=== PATIENT | female | born 1940 | race Caucasian/White ===

== ENCOUNTER 2024-05-01 11:18 | Day surgery (SDC) | payer MEDICARE, OTHER ==
[2024-04-27 11:36] LABS: ALBUMIN 3.9 G/DL (3.4-5.0); ALBUMIN/GLOBULIN RATIO 1.1 (1.1-1.5); ALKALINE PHOSPHATASE 55 IU/L (46-116); BLOOD UREA NITROGEN 16 MG/DL (7-18); BUN/CREATININE RATIO 20.3 (10.0-20.0); CALCIUM 9.6 MG/DL (8.5-10.1); CHLORIDE 102 MMOL/L (99-107); CREATININE 0.79 MG/DL (0.40-0.90); PRE OP ALT 26 U/L (30-65); PRE OP ANION GAP 7 (8-16); PRE OP AST 19 U/L (10-37); PRE OP BILIRUB, TOTAL 1.5 MG/DL (0.0-1.0); PRE OP GLUCOSE 98 MG/DL (70-104); PRE OP POTASSIUM 3.8 MMOL/L (3.4-5.1); PRE OP SODIUM 139 MMOL/L (135-145); TOTAL CARBON DIOXIDE 30.2 MMOL/L (24-32); TOTAL PROTEIN 7.6 G/DL (6.4-8.2); eGFR 69 ML/MIN
[2024-04-27 13:10] LABS: HEMATOCRIT 39.5 % (37.7-47.9); HEMOGLOBIN 13.5 G/DL (11.5-16.0); MEAN CORPUSCULAR HEMOGLOBIN 33.3 PG (27-31.2); MEAN CORPUSCULAR HGB CONC 34.1 % (32-36); MEAN CORPUSCULAR VOLUME 97.8 FL (81-97); RED BLOOD COUNT 4.04 X10'6 (3.60-4.90); WHITE BLOOD COUNT 7.7 X10'3 (4.5-11.0)
[2024-04-27 13:11] LABS: BASOPHILS % 0 % (0-2); EOSINOPHILS # (AUTO) 0.1 X10'3 (0-0.9); EOSINOPHILS % (AUTO) 1 % (0-6); LYMPHOCYTES # (AUTO) 1.2 X10'3 (1.1-4.8); LYMPHOCYTES % 16 % (24-44); MONOCYTES # (AUTO) 0.5 X10'3 (0-0.9); MONOCYTES % 7 % (0-12); NEUTROPHILS # (AUTO) 5.9 X10'3 (1.8-7.7); PLATELET COUNT 292 X10'3 (130-400); RED CELL DISTRIBUTION WIDTH 12.9 % (11-16); SEGMENTED NEUTROPHILS % 76 % (36-66)
[~2024-05-01] VITALS: Ht 170.2 cm; Wt 56.7 kg
[2024-05-01] MEDS: cefazolin 2gm/D5W 100mL 100 ML IV ONE (05:30)
[~2024-05-01 11:18] MED LIST: LOSA1TAB36 PO; VIT B COMPLEX; VIT C; VIT D
[2024-05-01 12:00] VITALS: BP 151/74; PULSE 59; RESP 14; TEMP 97.8; O2SAT 98
[2024-05-01] MEDS: famotidine 20mg tablet PO ONE (12:10)
[2024-05-01] MEDS: ringers solution, lacted 1,000 ML IV SCH ×2 (12:11→14:34)
[2024-05-01] MEDS ORDERED: meperidine/PF 50mg/ml syringe ONE (12:12)
[2024-05-01] MEDS ORDERED: ondansetron/PF 4mg/2ml inj ONE (12:14)
[2024-05-01] MEDS ORDERED: proCHLORperazine 10 MG/2 ml inj IV PRN (12:50)
[2024-05-01] MEDS ORDERED: fentaNYL/PF 50MCG/1 ML 2ML syringe IV PRN (12:50)
[2024-05-01] MEDS ORDERED: hydrALAZINE 20mg/ml inj. IV PRN (12:50)
[2024-05-01] MEDS ORDERED: acetaminophen 1,000mg/100ml IV 100 ML IV ONE ×2 (12:50→13:31)
[2024-05-01] MEDS ORDERED: ondansetron/PF 4mg/2ml inj IV PRN (12:50)
[2024-05-01] MEDS ORDERED: proMETHazine 25mg rectal suppository RC PRN (12:50)
[2024-05-01] MEDS ORDERED: labetalol 20mg/4ml (5mg/ml) syringe IV PRN (12:50)
[2024-05-01] MEDS ORDERED: HYDROmorphone/PF 0.2 MG/ML SYRINGE IV PRN ×2 (12:50)
[2024-05-01] MEDS ORDERED: desflurane 240ml liquid inh. IH ONE (12:59)
[2024-05-01] MEDS ORDERED: morphine 4 MG/ML inj SYRINge ONE (13:02)
[2024-05-01] MEDS: LIDOcaine 1% (10mg/ml)w/preservative inj. 20ml MDV ONE (13:16)
[2024-05-01] MEDS: BUPIVAcaine 2.5mg/ml inj 50ml vial (contains preservative) ONE (13:16)
[2024-05-01] MEDS ORDERED: ketorolac trometh 30MG/ML vial 30 MG/ML VIAL ONE (13:30)
[2024-05-01 14:01] VITALS: BP 134/71; PULSE 76; RESP 12; O2SAT 99
[2024-05-01 14:10] VITALS: BP 155/90; PULSE 66; RESP 18; O2SAT 97
[2024-05-01 14:20] VITALS: BP 143/89; PULSE 72; RESP 12; O2SAT 97
[2024-05-01 14:30] VITALS: BP 145/86; PULSE 73; RESP 17; O2SAT 95
[2024-05-01 14:40] VITALS: BP 161/88; PULSE 74; RESP 20; O2SAT 94
== END 2024-05-01 15:01 | disposition home or self-care (01) ==
LOC: PAS 11:18
PROVIDERS: ATTEND Surgery
DX: C50.211 Malignant neoplasm of upper-inner quadrant of right female breast (principal); I10 Essential (primary) hypertension; Z86.73 Personal history of transient ischemic attack (TIA), and cerebral infarction without residual deficits; Z87.891 Personal history of nicotine dependence; Z87.442 Personal history of urinary calculi; Z79.891 Long term (current) use of opiate analgesic; Z79.899 Other long term (current) drug therapy; Z98.890 Other specified postprocedural states; Z88.1 Allergy status to other antibiotic agents; Z88.8 Allergy status to other drugs, medicaments and biological substances
CPT/HCPCS: 19301; 36415; 80053; 82948; 85025; A4215; A4618; A6402; A7000; J0131; J0690; J1100; J1885; J2270; J2405; J2704; J3490; J7030; J7120; Z7506; Z7508; Z7512; Z7610; A6449; J2175

== ENCOUNTER 2024-05-29 07:02 | Day surgery (SDC) | payer MEDICARE, OTHER ==
[2024-05-26 15:16] LABS: BASOPHILS % (AUTO) 0.5 % (0-1); EOSINOPHILS # (AUTO) 0.1 X10'3 (0-0.9); EOSINOPHILS % (AUTO) 0.9 % (0-6); LYMPHOCYTES # (AUTO) 1.5 X10'3 (1.1-4.8); LYMPHOCYTES % (AUTO) 22.4 % (21-51); MEAN CORPUSCULAR HEMOGLOBIN 33.5 PG (27.0-31.0); MEAN CORPUSCULAR HGB CONC 34.4 g/dL (33.0-36.5); MEAN CORPUSCULAR VOLUME 97.3 FL (78-98); MEAN PLATELET VOLUME 8.2 FL (7.4-10.4); MONOCYTES # (AUTO) 0.5 X10'3 (0-0.9); MONOCYTES % (AUTO) 7.9 % (2-12); NEUTROPHILS # (AUTO) 4.4 X10'3 (1.8-7.7); NEUTROPHILS % (AUTO) 68.3 % (42-75); PRE OP HEMATOCRIT 38.1 % (35.0-45.0); PRE OP HEMOGLOBIN 13.1 g/dL (12.0-16.0); PRE OP PLATELET COUNT 221 X10'3 (140-440); PRE OP WHITE BLOOD COUNT 6.5 10'3 (4.8-10.8); RED BLOOD COUNT 3.92 X10'6 (4.20-5.60); RED CELL DISTRIBUTION WIDTH 13.3 % (11.5-14.5)
[2024-05-26 15:39] LABS: ALBUMIN 3.9 G/DL (3.4-5.0); ALBUMIN/GLOBULIN RATIO 1.3 (1.1-1.5); ALKALINE PHOSPHATASE 47 IU/L (46-116); BLOOD UREA NITROGEN 16 MG/DL (7-18); BUN/CREATININE RATIO 22.5 (10.0-20.0); CALCIUM 9.7 MG/DL (8.5-10.1); CHLORIDE 105 MMOL/L (99-107); CREATININE 0.71 MG/DL (0.40-0.90); PRE OP ALT 26 U/L (30-65); PRE OP ANION GAP 5 (8-16); PRE OP AST 22 U/L (10-37); PRE OP BILIRUB, TOTAL 1.9 MG/DL (0.0-1.0); PRE OP GLUCOSE 96 MG/DL (70-104); PRE OP POTASSIUM 3.4 MMOL/L (3.4-5.1); PRE OP SODIUM 142 MMOL/L (135-145); TOTAL CARBON DIOXIDE 31.6 MMOL/L (24-32); TOTAL PROTEIN 6.9 G/DL (6.4-8.2); eGFR 78 ML/MIN
[2024-05-29] VITALS (11 sets, daily range): BP systolic 135–166; BP diastolic 72–100; PULSE 57–96; RESP 14–30; TEMP 96.9; O2SAT 95–99
[~2024-05-29] VITALS: Ht 170.2 cm; Wt 56.8 kg
[2024-05-29] MEDS: cefazolin 2gm/D5W 100mL 100 ML IV ONE (05:30)
[~2024-05-29 07:02] MED LIST changes: +ASCO500C17 PO; +CHOL10006 PO; -VIT B COMPLEX; -VIT C; -VIT D; +VITA1CAP PO; +ringers solution, lacted 1,000 ML IV SCH
[2024-05-29] MEDS ORDERED: HYDROmorphone/PF 0.2 MG/ML SYRINGE IV PRN (07:35)
[2024-05-29] MEDS ORDERED: fentaNYL/PF 50MCG/1 ML 2ML syringe IV PRN ×2 (07:35)
[2024-05-29] MEDS ORDERED: proCHLORperazine 10 MG/2 ml inj IV PRN (07:35)
[2024-05-29] MEDS ORDERED: hydrALAZINE 20mg/ml inj. IV PRN (07:35)
[2024-05-29] MEDS ORDERED: labetalol 20mg/4ml (5mg/ml) syringe IV PRN (07:35)
[2024-05-29] MEDS: famotidine 20mg tablet PO ONE (07:57)
[2024-05-29] MEDS: LIDOcaine 1% (10mg/ml)w/preservative inj. 20ml MDV ONE (08:40)
[2024-05-29] MEDS: BUPIVAcaine 2.5mg/ml inj 50ml vial (contains preservative) ONE (08:40)
[2024-05-29] MEDS ORDERED: sevoflurane 250ml liquid IH ONE (09:00)
[2024-05-29] MEDS ORDERED: fentaNYL/PF 50MCG/1 ML 2ML syringe ONE (09:08)
[2024-05-29] MEDS ORDERED: midazolam 1 mg/ML 2ml injection ONE (09:08)
[2024-05-29] MEDS ORDERED: propofol inj 20 ML IV ONE (09:22)
[2024-05-29] MEDS ORDERED: LIDOcaine 2% (20mg/ml) 5ml vial ONE (09:22)
[2024-05-29] MEDS ORDERED: ePHEDrine 50MG/ML INJ. ONE (09:23)
[2024-05-29] MEDS ORDERED: dexamethasone sod phosphate 4mg/ml inj. ONE (09:23)
[2024-05-29] MEDS ORDERED: glycopyrrolate 0.2mg/ml inj ONE (09:23)
[2024-05-29] MEDS ORDERED: 0.9 % SODIUM CHLORIDE 10 ML VIAL ONE (09:23)
[2024-05-29] MEDS: acetaminophen 1,000mg/100ml IV 100 ML IV ONE (10:39)
[2024-05-29] MEDS: ondansetron/PF 4mg/2ml inj IV PRN (10:43)
[2024-05-29] MEDS: ringers solution, lacted 1,000 ML IV SCH (10:44)
== END 2024-05-29 11:59 | disposition home or self-care (01) ==
LOC: PRE-OP 07:02 → PAS 11:59
PROVIDERS: ATTEND Surgery
DX: C50.211 Malignant neoplasm of upper-inner quadrant of right female breast (principal); Z79.899 Other long term (current) drug therapy; Z87.442 Personal history of urinary calculi; Z88.8 Allergy status to other drugs, medicaments and biological substances; Z87.891 Personal history of nicotine dependence
CPT/HCPCS: 19301; 36415; 80053; 82948; 85025; A4215; A4618; A6402; A7000; J0131; J0690; J1100; J2001; J2250; J2405; J2704; J3010; J3490; J7030; J7120; Z7506; Z7508; Z7512; Z7610; A6449

== ENCOUNTER 2024-12-10 13:14 | Emergency (ER) | payer MEDICARE, OTHER ==
[~2024-12-10] VITALS: Ht 170.2 cm; Wt 57.3 kg
[~2024-12-10 13:14] MED LIST changes: +APIX5TAB3 PO; -ASCO500C17 PO; -CHOL10006 PO; +DILT-36 PO; +LOP25T PO; -VITA1CAP PO; -ringers solution, lacted 1,000 ML IV SCH
[2024-12-10 15:40] LABS: ALBUMIN 3.9 G/DL (3.4-5.0); ANION GAP 6 (8-16); BLOOD UREA NITROGEN 16 MG/DL (7-18); BUN/CREATININE RATIO 25.4 (10.0-20.0); CALCIUM 9.1 MG/DL (8.5-10.1); CHLORIDE 104 MMOL/L (99-107); CREATININE 0.63 MG/DL (0.40-0.90); GLUCOSE 95 MG/DL (70-104); POTASSIUM 3.4 MMOL/L (3.5-5.1); PRO BRAIN NATRIURETIC PEPTIDE 388 PG/ML (0-450); SODIUM 141 MMOL/L (135-145); TOTAL CARBON DIOXIDE 31.3 MMOL/L (24-32); eCRCL 58 ML/MIN; eGFR 90 ML/MIN
[2024-12-10 15:52] LABS: BASOPHILS % (AUTO) 0.4 % (0-1); EOSINOPHILS % (AUTO) 0.3 % (0-6); HEMATOCRIT 39.6 % (35.0-45.0); HEMOGLOBIN 13.8 g/dl (12.0-16.0); LYMPHOCYTES # (AUTO) 0.8 X10'3 (1.1-4.8); LYMPHOCYTES % (AUTO) 14.9 % (21-51); MEAN CORPUSCULAR HEMOGLOBIN 34.4 PG (27.0-31.0); MEAN CORPUSCULAR HGB CONC 34.8 g/dL (33.0-36.5); MEAN PLATELET VOLUME 8.4 FL (7.4-10.4); MONOCYTES # (AUTO) 0.4 X10'3 (0-0.9); MONOCYTES % (AUTO) 7.2 % (2-12); NEUTROPHILS # (AUTO) 4.1 X10'3 (1.8-7.7); NEUTROPHILS % (AUTO) 77.2 % (42-75); PLATELET COUNT 161 X10'3 (140-440); RED CELL DISTRIBUTION WIDTH 13.6 % (11.5-14.5); WHITE BLOOD COUNT 5.4 X10'3 (4.5-11.0)
[2024-12-10 16:12] VITALS: BP 152/86; PULSE 74; RESP 16; TEMP 97.6; O2SAT 99
== END 2024-12-10 16:14 | disposition home or self-care (01) ==
LOC: ER 13:14
DX: I10 Essential (primary) hypertension (principal); I71.40 Abdominal aortic aneurysm, without rupture, unspecified; I48.91 Unspecified atrial fibrillation; Z88.2 Allergy status to sulfonamides; Z79.01 Long term (current) use of anticoagulants
CPT/HCPCS: 36415; 71046; 80048; 83735; 83880; 84484; 85025; 93005; 99285